=== PATIENT | female | born 1995 ===

== ENCOUNTER 2017-02-04 19:19 | Emergency (ER) | payer MEDICAID ==
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
--- NOTE | 2017-02-04 20:06 | OBDCSUM ---
Datetime: 02/04/2017 20:05 Disch Instr Diet: Regular Datetime: 02/04/2017 20:03 Discharged to, Provider: Home Follow up at, Provider: PCP Disch Instr Activity: Normal activity Disch Instr Diet: Regular Discharge Time: 02/04/2017 20:03 Follow up in weeks, Provider: 02/05/2017 Disch Referrals: None Discharge Comment, Provider: labor precuations given, advised if pain, bleeding, leaking, decreased or less movements RTO Discharge Diagnosis Prov Other: for monitoring Contraception after Delivery: Not Planning to Use
== END 2017-02-04 20:01 | disposition home or self-care (01) ==
LOC: C.EROB 19:19
DX: O48.0 Post-term pregnancy (principal); Z3A.40 40 weeks gestation of pregnancy